=== PATIENT | female | born 1995 | race Caucasian/White ===

== ENCOUNTER 2019-08-04 01:54 | Emergency (ER) | payer BC, MEDICAID ==
[~2019-08-04] VITALS: Ht 160 cm; Wt 61.2 kg
[~2019-08-04 01:54] MED LIST: CEFU250T11 PO; CEPH500C PO; ONDA-42 SL; PHEN100T17 PO; SULF-222 PO
--- NOTE | 2019-08-04 03:04 | ED Cough/URI ---
General Chief Complaint: Fever-Adult/Adol Stated Complaint: FEVER, BODY PAIN Nursing Triage Note: SORETHROAT, FEVER AND BODY ACHES X2 DAYS, LAST TYLENOL AT 1600 LAST IBU AT 1200 Sepsis Screen: No Definite Risk Source: patient Exam Limitations: no limitations History of Present Illness Date Seen by Provider: Aug 04, 2019 Time Seen by Provider: 02:45 Initial Comments The patient presents ER by private conveyance with chief complaint of body aches chills fever for the past 3 days. She's been using Tylenol ibuprofen. She has a sore throat. Occasional cough is nonproductive. No shortness of breath or wheezing. No significant medical history. No rash. Allergies and Home Medications Allergies Coded Allergies: No Known Drug Allergies (Verified Allergy, Unknown, 10/08/08) Home Medications Cephalexin Monohydrate 500 Mg Capsule, 1 EACH PO TID Prescribed by: CHRISTINA PERDOMO on 01/28/15 1813 Ondansetron Hcl 4 Mg Tab, 4 MG SL Q4H PRN for NAUSEA/VOMITING FOR NAUSEA AND VOMITING Prescribed by: CHRISTINA PERDOMO on 01/28/15 1804 Phenazopyridine Hcl 100 Mg Tablet, 100 EACH PO TID PRN, (Reported) Trimethoprim/Sulfamethoxazole 1 Ea Tablet, 1 TAB PO BID, (Reported) Patient Home Medication List Home Medication List Reviewed: Yes Review of Systems Review of Systems Constitutional: chills, fever, malaise EENTM: see HPI; No ear discharge, No hearing loss, No ear pain Respiratory: see HPI, cough; No phlegm, No short of breath Cardiovascular: No chest pain, No edema Gastrointestinal: No abdominal pain, No constipation, No diarrhea, No nausea Past Qszqerj-Tlkvyk-Qpswdu Hx Patient Social History Alcohol Use: Denies Use Recreational Drug Use: No Smoking Status: Never a Smoker Recent Foreign Travel: No Contact w/Someone Who Travel: No Recent Infectious Disease Expo: No Recent Hopitalizations: No Physical Abuse: No Sexual Abuse: No Mistreated: No Fear: No Immunizations Up To Date Tetanus Booster (TDap): Less than 5yrs PED Vaccines UTD: Yes Date of Influenza Vaccine: Jul 14, 2019 Seasonal Allergies Seasonal Allergies: No Past Medical History Surgeries: Yes (ORTHO TO LEFT HAND X 7) Orthopedic Respiratory: No Cardiac: No Neurological: No Reproductive Disorders: No Sexually Transmitted Disease: No Genitourinary: No Gastrointestinal: No Musculoskeletal: Yes (LEFT THUMB AND TIPS OF FINGER AMPUTATIONS) Endocrine: No HEENT: No Cancer: No Psychosocial: No Integumentary: No Blood Disorders: No Physical Exam Vital Signs - First Documented 08/04/19 02:10 Temp 37.9 Pulse 121 Resp 18 B/P (MAP) 135/98 (110) Pulse Ox 98 Capillary Refill : Less Than 3 Seconds Height: 5'3" Weight: 120lbs. oz. 54.735979wt; 23.00 BMI Method: General Appearance: WD/WN, no apparent distress Eyes: Bilateral Eye Normal Inspection, Bilateral Eye PERRL, Bilateral Eye EOMI HEENT: PERRL/EOMI, TMs normal, pharyngeal erythema; No tonsillar exudate Neck: full range of motion, lymphadenopathy (R), lymphadenopathy (L) (tender, shoddy, bilateral, anterior cervical lymphadenopathy) Respiratory: lungs clear, normal breath sounds, no respiratory distress, no accessory muscle use Progress/Results/Core Measures Suspected Sepsis Recent Fever Within 48 Hours: Yes Infection Criteria Present: None New/Unexplained Altered Menta: No Sepsis Screen: No Definite Risk SIRS Temperature: Pulse: 121 Respiratory Rate: 18 Blood Pressure 135 /98 Mean: 110 Results/Orders Lab Results Laboratory Tests Test 08/04/19 02:20 Range/Units Group A Streptococcus Screen NEGATIVE NEGATIVE Micro Results Microbiology 08/04/19 Influenza Types A,B Antigen (SHMUEL) - Final, Complete My Orders Orders - AHSAN HARLEY Influenza A And B Antigens (08/04/19 02:23) Rapid Strep A Screen (08/04/19 02:23) Vital Signs/I&O 08/04/19 02:10 Temp 37.9 Pulse 121 Resp 18 B/P (MAP) 135/98 (110) Pulse Ox 98 Capillary Refill : Less Than 3 Seconds Blood Pressure Mean: 110 POS Progress Note : Time: 03:01 Progress Note URI with negative rapid strep and influenza. Conservative counseling given. Toradol for her fever and body aches. Departure Impression Primary Impression: Upper respiratory infection Qualified Codes: J06.9 - Acute upper respiratory infection, unspecified Disposition: 01 HOME, SELF-CARE Condition: Stable Departure-Patient Inst. Decision time for Depature: 03:02 Referrals: TITO CORREA MD (PCP/Family) Primary Care Physician Patient Instructions: Cough, Runny Nose, and the Common Cold (DC) Add. Discharge Instructions: Drink plenty of fluids use humidifiers and vapor rubs and xdmy-vjk-yysufaf cough and cold remedies as necessary for symptom management. Chlorpheniramine 4 mg every 4 hours can be helpful for nasal congestion. Salt water gargles, hot tea with honey or lemon can be helpful for sore throat. If the strep culture comes back positive then we will call you and send out a prescription as appropriate. Tylenol 1000 mg every 8 hours as needed for pain, body aches or fever. Ibuprofen 800 mg every 8 hours as needed for pain, body aches or fever. Alternatively you can use naproxen/Aleve one to 2 capsules twice a day. All discharge instructions reviewed with patient and/or family. Voiced understanding. AHSAN HARLEY Aug 04, 2019 03:04 POS
[2019-08-04 03:12] VITALS: BP 135/98
[2019-08-04] MEDS ORDERED: KETOROLAC 60 MG/2 ML VIAL IM ONE (03:15)
== END 2019-08-04 03:15 | disposition home or self-care (01) ==
LOC: EDUNIT# 01:54 → ER 01:57
DX: J06.9 Acute upper respiratory infection, unspecified (principal); Z89.012 Acquired absence of left thumb; Z89.022 Acquired absence of left finger(s)
CPT/HCPCS: 87430; 87804; 96372

== ENCOUNTER 2020-02-23 22:03 | Emergency (ER) | payer MEDICAID ==
[~2020-02-23] VITALS: Ht 160 cm; Wt 62.5 kg
[2020-02-23 22:08] VITALS: BP 120/80
[2020-02-23] MEDS ORDERED: CLIN300C11 PO (22:21)
--- NOTE | 2020-02-23 22:22 | ED EENT ---
History of Present Illness General Chief Complaint: Dental Problems/Pain Stated Complaint: TOOTH PAIN History of Present Illness Date Seen by Provider: Feb 23, 2020 Time Seen by Provider: 22:10 Initial Comments 24-year-old female who presents have 14 weeks gestation reports dental pain on the right lower molar. It has been present since last night. She has been taking Tylenol with no resolution in her symptoms. She does not have a local dentist. Timing/Duration: abrupt Location: dental Prearrival Treatment: over the counter meds Associated Symptoms: denies symptoms Allergies and Home Medications Allergies Coded Allergies: No Known Drug Allergies (Verified Allergy, Unknown, 10/08/08) Home Medications Clindamycin HCl 300 Mg Capsule, 300 MG PO Q8H Prescribed by: XOCHILT ORANTES on 02/23/202220 Patient Home Medication List Home Medication List Reviewed: Yes Review of Systems Review of Systems Constitutional: no symptoms reported, see HPI Mouth: see HPI, pain (right dental) : Yes All Other Systems Reviewed Negative Unless Noted: Yes Past Emcbomv-Iibshf-Uwurhv Hx Past Med/Social Hx: Reviewed Nursing Past Med/Soc Hx Patient Social History Alcohol Use: Denies Use Recreational Drug Use: No Smoking Status: Never a Smoker 2nd Hand Smoke Exposure: No Recent Foreign Travel: No Contact w/Someone Who Travel: No Recent Hopitalizations: No Physical Abuse: No Sexual Abuse: No Mistreated: No Fear: No Immunizations Up To Date Tetanus Booster (TDap): Less than 5yrs PED Vaccines UTD: Yes Date of Influenza Vaccine: Jul 14, 2019 Seasonal Allergies Seasonal Allergies: No Past Medical History Surgeries: Yes (ORTHO TO LEFT HAND X 7, right thumb) Orthopedic Respiratory: No Cardiac: No Neurological: No Reproductive Disorders: No Sexually Transmitted Disease: No Genitourinary: No Gastrointestinal: No Musculoskeletal: Yes (LEFT THUMB AND TIPS OF FINGER AMPUTATIONS) Endocrine: No HEENT: No Cancer: No Psychosocial: No Integumentary: No Blood Disorders: No Physical Exam Vital Signs Vital Signs - First Documented 02/23/20 22:08 Temp 36.8 Pulse 76 Resp 16 B/P (MAP) 120/80 (93) Pulse Ox 100 O2 Delivery Room Air Height, Weight, BMI Height: 5'3" Weight: 120lbs. oz. [id number]; 23.00 BMI Method: General Appearance: WD/WN, no apparent distress Ears: bilateral ear auricle normal, bilateral ear canal normal, bilateral ear TM normal Nose: normal inspection; No active bleeding, No discharge Mouth/Throat: pharynx normal, dental tenderness (tooth 32); No mandibular swelling, No maxillary swelling Neck: full range of motion, supple, normal inspection, lymphadenopathy (R) Cardiovascular: normal peripheral pulses, regular rate, rhythm Respiratory: chest non-tender, lungs clear, normal breath sounds Gastrointestinal: normal bowel sounds, non tender, soft Neurologic/Psychiatric: no motor/sensory deficits, alert, normal mood/affect, oriented x 3 Skin: normal color, warm/dry Progress/Results/Core Measures Results/Orders My Orders Orders - XOCHILT ORANTES Clindamycin Capsule (Cleocin Capsule) (02/23/20 22:30) Medications Given in ED Current Medications Medications Dose Ordered Sig/Ryan Route Start Time Stop Time Status Last Admin Dose Admin Clindamycin HCl 300 mg ONCE ONCE PO 02/23/20 22:30 02/23/20 22:31 DC 02/23/20 22:31 300 MG Vital Signs/I&O 02/23/20 22:08 Temp 36.8 Pulse 76 Resp 16 B/P (MAP) 120/80 (93) Pulse Ox 100 O2 Delivery Room Air Departure Impression Primary Impression: Mouth pain Additional Impression: Impacted tooth Disposition: HOME, SELF-CARE Condition: Improved Departure-Patient Inst. Decision time for Depature: 22:20 Referrals: EMILY TRAORE MD ,LOCAL PHYSICIAN (PCP) Primary Care Physician Patient Instructions: Impacted Tooth (DC), Dental Pain (DC) Add. Discharge Instructions: Warm moist compressions to right cheek. Continue taking Tylenol 650 mg every 8 hours for pain. Take antibiotics as prescribed. Use lrue-yvt-[id number] dental pain ointment such as Ambesol. Rinse her mouth with Listerine or peroxide every 4 hours. Follow-up with [facility] or your DRAFTING ENGINEER for referral to a dentist. Return to the emergency department for new, urgent health care needs. All discharge instructions reviewed with patient and/or family. Voiced understanding. Scripts Clindamycin HCl (Clindamycin HCl) 300 Mg Capsule 300 MG PO Q8H, #21 CAP 0 Refills Prov: XOCHILT ORANTES 02/23/20 Copy Copies To 1: EMILY TRAORE MD, AMY ARNP Feb 23, 2020:22
[2020-02-23] MEDS ORDERED: CLINDAMYCIN 150 MG (CLEOCIN) CAP PO ONE (22:30)
== END 2020-02-23 22:32 | disposition home or self-care (01) ==
LOC: EDUNIT# 22:03 → ER 22:05
DX: K01.1 Impacted teeth (principal)
CPT/HCPCS: 99283

== ENCOUNTER 2020-04-29 18:39 | Outpatient (CLI) | payer MEDICAID ==
[~2020-04-29] VITALS: Ht 160 cm; Wt 68.0 kg
[~2020-04-29 18:39] MED LIST changes: +CLIN300C11 PO
--- NOTE | 2020-04-29 18:45 | NUR ---
CURT CARTER presented to unit via w/c from ED, accompanied by family, with c/o SIDE PAIN. CURT CARTER weighed, gowned, voided, and to bed. EFHM and TOCO applied, VS taken. CURT CARTER oriented to bed controls, call light, TV, heat, and A/C controls.
[2020-04-29 19:00] VITALS: BP 107/71
[2020-04-29 19:49] VITALS: BP 110/74
--- NOTE | 2020-04-29 19:49 | NUR ---
dr. 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 pt denies any abdominal trauma, or falls, denies burning or pain with urination. VSS, no ctx's noted. Pt states having anterior placenta, FHT audible when pt is tilted to right side with EFM on right side of abdomen. Abdomen not tender to touch. Pt did states she was lifting more than 50lbs at work prior to having the sharp pain. Orders received from dr. mena.
[2020-04-29 20:33] LABS: BASOPHILS % (AUTO) 0 % (0-10); EOSINOPHILS # (AUTO) 0.1 10^3/uL (0.0-0.3); EOSINOPHILS % (AUTO) 1 % (0-10); HEMATOCRIT 37 % (35-52); HEMOGLOBIN 12.6 G/DL (11.5-16.0); LYMPHOCYTES # (AUTO) 1.9 X 10^3 (1.0-4.0); LYMPHOCYTES % (AUTO) 18 % (12-44); MEAN CORPUSCULAR HEMOGLOBIN 35 PG (25-34); MEAN CORPUSCULAR HGB CONC 34 G/DL (32-36); MEAN CORPUSCULAR VOLUME 102 FL (80-99); MEAN PLATELET VOLUME 9.4 FL (7.4-10.4); MONOCYTES # (AUTO) 0.8 X 10^3 (0.0-1.0); MONOCYTES % (AUTO) 8 % (0-12); NEUTROPHILS # (AUTO) 7.5 X 10^3 (1.8-7.8); NEUTROPHILS % (AUTO) 73 % (42-75); PLATELET COUNT 247 10^3/uL (130-400); RED CELL DISTRIBUTION WIDTH 12.2 % (10.0-14.5); WHITE BLOOD COUNT 10.3 10^3/uL (4.3-11.0)
[2020-04-29 20:36] LABS: BILIRUBIN,URINE NEGATIVE (NEGATIVE); COLOR,URINE YELLOW; GLUCOSE, URINE (UA) NEGATIVE (NEGATIVE); KETONES,URINE NEGATIVE (NEGATIVE); LEUKOCYTE ESTERASE ,URINE 2+ (NEGATIVE); NITRITE,URINE POSITIVE (NEGATIVE); PROTEIN,URINE NEGATIVE (NEGATIVE)
[2020-04-29 20:42] LABS: ALANINE AMINOTRANSFERASE 14 U/L (0-55); ALBUMIN 3.6 GM/DL (3.2-4.5); ALKALINE PHOSPHATASE 82 U/L (40-136); BILIRUBIN,TOTAL 0.3 MG/DL (0.1-1.0); BUN/CREATININE RATIO 13; CARBON DIOXIDE 23 MMOL/L (21-32); CHLORIDE 106 MMOL/L (98-107); GFR ESTIMATED > 60; GLUCOSE 88 MG/DL (70-105); SODIUM 136 MMOL/L (135-145); TOTAL PROTEIN 6.6 GM/DL (6.4-8.2)
[2020-04-29 20:45] LABS: BACTERIA,URINE MODERATE /HPF; CLARITY,URINE SL CLOUDY
--- NOTE | 2020-04-29 20:57 | NUR ---
Lab results reviewed with dr. Montiel orders received. pt's pain decreased and feeling better.
[2020-04-29] MEDS ORDERED: AMOX500T2 PO (21:07)
[2020-04-29] MEDS ORDERED: AMOXICILLIN 250 MG (POLYMOX) CAP PO ONE (21:11)
[2020-04-29 21:31] VITALS: BP 110/74
--- NOTE | 2020-04-29 21:31 | NUR ---
Discharge instructions reviewed with pt, rx called into pharmacy and enc to berry picker machine operator tomorrow, pt to f/u with clinic on saturday. Dr. maya note given for pt to be off work saturday-saturday per dr. mena request. pt verbalized understanding and ambulated off unit with self. no s/s of distress noted.
[2020-04-30] MEDS ORDERED: AMOXICILLIN 500 MG (POLYMOX) CAP PO ONE (08:00)
--- NOTE | 2020-05-02 08:15 | Physician Query-Final Dx ---
Clinic Account Progress/Dx Physician Query: Please give diagnosis Please include # weeks gestation Date of Service Apr 29, 2020 at 18:39 ELI VICENTE May 02, 2020 08:15
== END 2020-04-29 21:31 | disposition home or self-care (01) ==
LOC: WSo 18:39 → LDRP 18:40 → WSo 21:31
PROVIDERS: ATTEND Family Medicine
DX: O26.899 Other specified pregnancy related conditions, unspecified trimester (principal); R10.9 Unspecified abdominal pain; Z3A.00 Weeks of gestation of pregnancy not specified
CPT/HCPCS: 36415; 80053; 81000; 85025; 87077; 87088; 87186; 99213

== ENCOUNTER 2020-07-19 14:45 | Outpatient (CLI) | payer MEDICAID ==
[~2020-07-19] VITALS: Ht 160 cm; Wt 73.8 kg
[~2020-07-19 14:45] MED LIST changes: +AMOX500T2 PO
--- NOTE | 2020-07-19 14:50 | NUR ---
CURT CARTER presented to unit from ED, accompanied by Staff , with c/o CONTRACTIONS. CURT CARTER weighed, gowned, voided, and to bed. EFHM and TOCO applied, VS taken. CURT CARTER oriented to bed controls, call light, TV, heat, and A/C controls.
[2020-07-19 15:00] VITALS: BP 123/78
[2020-07-19 15:10] VITALS: BP 123/78
[2020-07-19 15:29] LABS: BILIRUBIN,URINE NEGATIVE (NEGATIVE); CLARITY,URINE CLEAR; COLOR,URINE DARK YELLOW; GLUCOSE, URINE (UA) NEGATIVE (NEGATIVE); KETONES,URINE NEGATIVE (NEGATIVE); LEUKOCYTE ESTERASE ,URINE 3+ (NEGATIVE); NITRITE,URINE POSITIVE (NEGATIVE); PROTEIN,URINE NEGATIVE (NEGATIVE)
[2020-07-19] MEDS ORDERED: PNV11TAB5 PO (15:30)
[2020-07-19 15:59] LABS: AMORPHOUS SEDIMENT,UR FEW AMOR URATES /LPF; BACTERIA,URINE LARGE /HPF; RBC,URINE 0-2 /HPF; WBC,URINE 25-50 /HPF
--- NOTE | 2020-07-19 16:00 | NUR ---
Care of patient transferred to Chetan Tracy RN.
--- NOTE | 2020-07-19 16:49 | NUR ---
Dr. Gore updated on patient's status and UA results. New orders received.
[2020-07-19] MEDS ORDERED: cefTRIAXone 1,000 MG/2.86 ml vial (IM ONLY) ONE (16:58)
[2020-07-19] MEDS ORDERED: LIDOCAINE 1% INJ 20 ML 20 ML VIAL ONE (16:58)
[2020-07-19] MEDS ORDERED: LIDOCAINE 1% INJ 20 ML 20 ML VIAL INJ ONE (17:00)
[2020-07-19] MEDS ORDERED: cefTRIAXone 1,000 MG/2.86 ml vial (IM ONLY) IM SCH (17:00)
[2020-07-19 17:20] VITALS: BP 119/78
[2020-07-19] MEDS ORDERED: LACTATED RINGERS 1,000 ML IV SCH (17:45)
[2020-07-19] MEDS ORDERED: ACETAMINOPHEN 500 MG TAB (TYLENOL) PO ONE (17:45)
[2020-07-19] MEDS ORDERED: hydrOXYzine (VISTARIL/ATARAX) 25 MG capsule/tablet ONE (17:48)
[2020-07-19] MEDS ORDERED: ACETAMINOPHEN 500 MG TAB (TYLENOL) ONE (17:49)
[2020-07-19] MEDS ORDERED: hydrOXYzine (VISTARIL/ATARAX) 25 MG capsule/tablet PO ONE (18:00)
[2020-07-19] MEDS ORDERED: ZOLPIDEM 5 MG (AMBIEN) TAB PO PRN (20:00)
[2020-07-19] MEDS ORDERED: ACETAMINOPHEN 500 MG TAB (TYLENOL) PO PRN (20:00)
--- NOTE | 2020-07-19 20:00 | NUR ---
Dr Gore updated with pt status. New orders received.
[2020-07-19] MEDS: LACTATED RINGERS 1,000 ML IV SCH (20:08)
--- NOTE | 2020-07-19 20:55 | NUR ---
pt up to bathroom. noticed small amount of bloody show on bed pad. No leaking fluid.
[2020-07-19 21:45] VITALS: BP 117/73
--- NOTE | 2020-07-19 21:45 | NUR ---
Dr Gore updated with pt status and ve.
--- NOTE | 2020-07-19 22:30 | NUR ---
baby very active. difficult to trace FHT's.
[2020-07-20] VITALS: BP 112/62
[2020-07-20 03:00] VITALS: BP 102/53
[2020-07-20] MEDS: LACTATED RINGERS 1,000 ML IV SCH (04:03)
[2020-07-20 05:15] VITALS: BP 116/70
--- NOTE | 2020-07-20 06:38 | NUR ---
Dr. Gore called for report on pt. ordered pt to be rechecked. If pt has not made cervical change, pt is to receive 1gm Rocephin IV and be discharged. At discharge ordered Omnicef 300mg BID for 3 days to be called into pharmacy.
[2020-07-20] MEDS ORDERED: cefTRIAXone FOR IV USE 1,000 MG in WATER (STERILE) FOR INJECTION 10 ML IV ONE (06:45)
--- NOTE | 2020-07-20 06:50 | NUR ---
SVE 3.5cm
[2020-07-20 07:06] VITALS: BP 95/58
--- NOTE | 2020-07-20 07:31 | NUR ---
Discharge instructions explained, signed and copy to patient per Bonnie Rodriguez RN. pt ambulates off unit discharged to home with belongings in hand.
--- NOTE | 2020-07-20 08:51 | Physician Query-Final Dx ---
Clinic Account Progress/Dx Physician Query: Please give diagnosis Please include # weeks gestation Date of Service Jul 19, 2020 at 14:45 ELI VICENTE Jul 20, 2020 08:51
== END 2020-07-20 07:31 | disposition home or self-care (01) ==
LOC: WSo 14:45 → LDRP 14:46 → WSo 07-20 07:31
PROVIDERS: ATTEND Family Medicine
DX: Z34.90 Encounter for supervision of normal pregnancy, unspecified, unspecified trimester (principal); Z3A.00 Weeks of gestation of pregnancy not specified
CPT/HCPCS: 81000; 87077; 87088; 87186; 96361; 96372; 96374

== ENCOUNTER → 2020-08-01 | Outpatient (CLI) | payer MEDICAID ==
[~2020-08-01] MED LIST changes: +DCS100C PO; +IBUP-1780 PO; +OXYC1TAB12 PO; +PNV11TAB5 PO
== END ==
LOC: LABNPT 07-29 05:55
PROVIDERS: ATTEND Family Medicine
DX: Z34.93 Encounter for supervision of normal pregnancy, unspecified, third trimester (principal); Z3A.39 39 weeks gestation of pregnancy; Z20.828 Contact with and (suspected) exposure to other viral communicable diseases
CPT/HCPCS: 87635

== ENCOUNTER 2020-08-02 18:29 | Inpatient (IN) | payer MEDICAID ==
[~2020-08-02] VITALS: Ht 160 cm; Wt 76.3 kg
[~2020-08-02 18:29] MED LIST changes: -DCS100C PO; -IBUP-1780 PO; -OXYC1TAB12 PO
--- NOTE | 2020-08-02 18:40 | NUR ---
CURT CARTER admitted to room 3319-1, with an admitting diagnosis of induction of labor, on 08/02/20 from home via private car to registration in ER, accompanied by s/o.CURT CARTER introduced to surroundings, call light, bed controls, phone, TV, temperature control, lights, meal times, smoking policy, visitor policy, side rail policy, bathrooms and showers. Patient Rights given to patient in the handbook. CURT CARTER verbalizes understanding that [facility] is not responsible for the loss or damage to any personal effects or valuables that are kept in the patients posession during their hospitalization. The following Patient Care Plans were discussed with the patient: Discharge Planning, pain management, and labor care plan. CURT CARTER verbalizes understanding of Interdisciplinary Patient Education. Patient and/or family were informed about the Rapid Response Team and its purpose.
[2020-08-02] MEDS ORDERED: WATER (STERILE) FOR INJECTION 20 ML ONE (19:06)
[2020-08-02] MEDS ORDERED: D5 LR IV SOLUTION 1,000 ML IV ONE (19:06)
[2020-08-02] MEDS ORDERED: AMPICILLIN 2,000 MG/14.8 ML (IV USE) ONE (19:06)
[2020-08-02 19:15] VITALS: BP 122/78
[2020-08-02] MEDS ORDERED: MINERAL OIL CONCENTRATE 99.9% 15 ML UDC TOP PRN (19:30)
[2020-08-02] MEDS: D5 LR IV SOLUTION 1,000 ML IV SCH (19:33)
[2020-08-02 19:45] LABS: BASOPHILS % (AUTO) 0 % (0-10); EOSINOPHILS # (AUTO) 0.1 10^3/uL (0.0-0.3); EOSINOPHILS % (AUTO) 1 % (0-10); HEMATOCRIT 39 % (35-52); HEMOGLOBIN 13.4 g/dL (11.5-16.0); LYMPHOCYTES # (AUTO) 2.3 10^3/uL (1.0-4.0); LYMPHOCYTES % (AUTO) 20 % (12-44); MEAN CORPUSCULAR HEMOGLOBIN 34 pg (25-34); MEAN CORPUSCULAR HGB CONC 34 g/dL (32-36); MEAN CORPUSCULAR VOLUME 100 fL (80-99); MEAN PLATELET VOLUME 10.5 fL (9.0-12.2); MONOCYTES # (AUTO) 0.8 10^3/uL (0.0-1.0); MONOCYTES % (AUTO) 7 % (0-12); NEUTROPHILS # (AUTO) 8.4 10^3/uL (1.8-7.8); NEUTROPHILS % (AUTO) 71 % (42-75); PLATELET COUNT 270 10^3/uL (130-400); WHITE BLOOD COUNT 11.7 10^3/uL (4.3-11.0)
[2020-08-02] MEDS ORDERED: AMPICILLIN FOR IV USE 2,000 MG in WATER (STERILE) FOR INJECTION 14.8 ML IV SCH (19:58)
[2020-08-02 22:00] VITALS: BP 120/81
--- NOTE | 2020-08-02 22:08 | NUR ---
Dr. alejandre called and updated on pt's sve, and ctx pattern, will hold off on starting cytotec protocol due to ctx's and sve. Cont to monitor through night.
[2020-08-02] MEDS: CATHETER FLUSH 10 ML SYR IV SCH (22:51)
[2020-08-02] MEDS: AMPICILLIN FOR IV USE 1,000 MG in WATER (STERILE) FOR INJECTION 7.4 ML IV SCH (23:50)
[2020-08-03] VITALS (32 sets, daily range): BP systolic 92–151; BP diastolic 43–100
[2020-08-03] MEDS: D5 LR IV SOLUTION 1,000 ML IV SCH ×2 (01:43→10:18)
[2020-08-03] MEDS: AMPICILLIN FOR IV USE 1,000 MG in WATER (STERILE) FOR INJECTION 7.4 ML IV SCH ×3 (03:47→12:12)
[2020-08-03] MEDS: CATHETER FLUSH 10 ML SYR IV SCH ×2 (05:38→22:40)
[2020-08-03] MEDS ORDERED: OXYTOCIN PRE-MIX DRIP 500 ML IV SCH ×2 (08:50→15:15)
[2020-08-03] MEDS ORDERED: OXYTOCIN PRE-MIX DRIP 500 ML IV ONE (08:51)
--- NOTE | 2020-08-03 11:06 | History & Physical-OB ---
OB - Chief Complaint & HPI Date/Time Date of Admission: Date of Admission: Aug 02, 2020 at 18:29 Date seen by a Provider: Aug 03, 2020 Time Seen by a Provider: 09:40 Chief Complaint/History OB-Reason for Admission/Chief: Induction of Labor Hx : 1 Hx Para: 0 Expected Date of Delivery: Aug 01, 2020 Gestational Age in Weeks: 40 Gestational Age in Days: 1 Indication for induction: post dates History of Labs O+, Ab Neg Rub Imm HIV/HepB/RPR NR Chyl + Abnormal 1 hr GTT, borderline 3 hr GTT GBS Pos Allergies and Home Medications Allergies Coded Allergies: No Known Drug Allergies (Verified , 08/02/20) Home Medications [id number]/FA/Omega3/Dha/Fish Oil 1 Each Tab.chew, 1 EACH PO DAILY, (Reported) Patient Home Medication List Home Medication List Reviewed: Yes OB - History Hx of Present Care: Yes Ultrasounds: No ultrasounds Obstetrical Complications: None Medical Complications: None Information Induced Hypertension: No Maternal Gestational Diabetes: No Hemorrhage: No Obstetrical History Hx : 1 Hx Para: 0 Number of Living Children: 0 Delivery History Hx Blood Disorders: No Patient Past Medical History UTI in Social History/Family History HIV/AIDS: No Recent Infectious Disease Expo: No Sexually Transmitted Disease: No Alcohol Use: Denies Use Recreational Drug Use: No 2nd Hand Smoke Exposure: No Immunizations Hepatitis A: Yes Hepatitis B: Yes Tetanus Booster (TDap): Less than 5yrs Date of Influenza Vaccine: Jun 02, 2020 Rubella: immune RPR/VDRL: Negative GBS Status: Positive HBsAG: Negative OB - Admission Exam Physical Exam Vitals: Vital Signs 08/03/20 08/03/20 09:40 10:10 Temp 36.6 Pulse 81 Resp 18 B/P (MAP) 135/91 (106) O2 Delivery Room Air HEENT: PERRLA Heart: Rhythm Normal Lungs: Clear Abdomen: Gravid Cervical Dilatation: 5cm Effacement: 75% Station: -1 Membranes: Intact Accelerations: Accelerations Present Decelerations: Variable Decelerations Contractions on Admission: < 5 Minutes Apart Intensity: Moderate Ortega Scoring Tool (Modified) Dilation (cm): 3-4cm (2) Effacement (%): 51-79% (2) Descent/Station: -2 (1) Cervix Consistency: Medium(1) Cervix Position: Middle/Mid-Position (1) Ortega Score: 8 Labs Laboratory Tests Test 08/02/20 19:30 Range/Units White Blood Count 11.7 H 4.3-11.0 10^3/uL Red Blood Count 3.90 3.80-5.11 10^6/uL Hemoglobin 13.4 11.5-16.0 g/dL Hematocrit 39 35-52 % Mean Corpuscular Volume 100 H 80-99 fL Mean Corpuscular Hemoglobin 34 25-34 pg Mean Corpuscular Hemoglobin Concent 34 32-36 g/dL Red Cell Distribution Width 11.8 10.0-14.5 % Platelet Count 270 130-400 10^3/uL Mean Platelet Volume 10.5 9.0-12.2 fL Immature Granulocyte % (Auto) 1 % Neutrophils (%) (Auto) 71 42-75 % Lymphocytes (%) (Auto) 20 12-44 % Monocytes (%) (Auto) 7 0-12 % Eosinophils (%) (Auto) 1 0-10 % Basophils (%) (Auto) 0 0-10 % Neutrophils # (Auto) 8.4 H 1.8-7.8 10^3/uL Lymphocytes # (Auto) 2.3 1.0-4.0 10^3/uL Monocytes # (Auto) 0.8 0.0-1.0 10^3/uL Eosinophils # (Auto) 0.1 0.0-0.3 10^3/uL Basophils # (Auto) 0.0 0.0-0.1 10^3/uL Immature Granulocyte # (Auto) 0.1 0.0-0.1 10^3/uL OB - Assessment/Plan/Diagnosis Assessment Assessment: induction of labor Admission Dx Third Trimester 40 week gestation Admission Status: Inpatient Order (span 2 midnights) Reason for Inpatient Admission: Induction Plan Plan: Induction Other Plan 25 yo @ 40.3 wga here for elective IOL Plan - GBS +, ampicillin started last night - AROM 0940 clear - Start Pitocin protocol 1422: Began pushing with patient, patient had good effort and pushed for 45 mins. FHT began to have deep variable decelerations and taking longer to recover. Patient stated that she didn't think that she could push anymore and was not making any progression in station. Dr Talley was called for consult and agreed that patient was appropriate for for intolerance. Discussed plan of care with patient and she was in agreement with . Patient has been adequately treated for GBS. Ancef and Flagyl ordered for surgery. Ansthesia/OR crew called. EMILY TRAORE MD Aug 03, 2020 11:06
[2020-08-03] MEDS ORDERED: BUTORPHANOL INJ 2 MG/ML (STADOL) VIAL ONE (11:44)
[2020-08-03] MEDS ORDERED: BUTORPHANOL INJ 2 MG/ML (STADOL) VIAL IV ONE (11:45)
--- NOTE | 2020-08-03 12:55 | NUR ---
Report from Nick Conley RN. Introduced self to pt. Plan of care reviewed.
[2020-08-03] MEDS ORDERED: LIDOCAINE/EPI 2% 1:200,00 (XYLOCAINE) 10 ML VIAL ONE (13:22)
[2020-08-03] MEDS ORDERED: FAMOTIDINE 20MG/2ML IV (PEPCID) ONE (15:06)
[2020-08-03] MEDS ORDERED: CITRIC ACID/SOB CIT (BICITRA) 30 ML UDC ONE (15:06)
[2020-08-03] MEDS ORDERED: METOCLOPRAMIDE INJ 10 MG/2 ML (REGLAN) ONE (15:06)
[2020-08-03] MEDS ORDERED: TERBUTALINE INJ 1 MG/ML (BRETHINE) AMP ONE (15:07)
[2020-08-03] MEDS ORDERED: OXYTOCIN (PITOCIN) 10 UNIT/ML VIAL ONE (15:10)
[2020-08-03] MEDS ORDERED: fentaNYL INJECTION 100 MCG/2 ML AMP ONE (15:10)
[2020-08-03] MEDS ORDERED: ceFAZolin 2 GM IV Premixed 50 ML ONE (15:13)
[2020-08-03] MEDS ORDERED: metroNIDAZOLE 500MG/100ML IVPB 100 ML ONE (15:13)
[2020-08-03] MEDS ORDERED: TETANUS,DIPTH,PERTUSS P/F (BOOSTRIX) 0.5 ML VIAL IM ONE (15:15)
[2020-08-03] MEDS ORDERED: MEASLES,MUMPS,RUBELLA 1 EA INJ SC ONE (15:15)
[2020-08-03] MEDS ORDERED: ONDANSETRON 4 MG/2 ML (SDV) Z0FRAN IVP PRN (15:15)
[2020-08-03] MEDS ORDERED: D5 LR IV SOLUTION 1,000 ML IV SCH (15:15)
[2020-08-03] MEDS ORDERED: BUPIVACAINE 0.5% 30 ML (SENSORCAINE) VIAL ONE (16:19)
[2020-08-03] MEDS ORDERED: KETOROLAC 30 MG/ML VIAL ONE (16:22)
[2020-08-03] MEDS ORDERED: PHENYLEPHRINE 100 MCG/ML 10 ML (ANESTHESIA) SYR ONE (16:43)
[2020-08-03] MEDS ORDERED: METOCLOPRAMIDE INJ 10 MG/2 ML (REGLAN) IV PRN (16:45)
[2020-08-03] MEDS ORDERED: ONDANSETRON 4 MG/2 ML (SDV) Z0FRAN IV PRN (16:45)
[2020-08-03] MEDS ORDERED: NALOXONE 0.4 MG/ML 1 ML (NARCAN) VIAL IV PRN ×2 (16:45)
[2020-08-03] MEDS ORDERED: diphenhydrAMINE 50 MG/ML INJ (BENADRYL) IV PRN (16:45)
[2020-08-03] MEDS ORDERED: LACTATED RINGERS 1,000 ML IV PRN (18:09)
[2020-08-03] MEDS ORDERED: CITRIC ACID/SOB CIT (BICITRA) 30 ML UDC PO ONE (18:15)
[2020-08-03] MEDS ORDERED: FAMOTIDINE 20MG/2ML IV (PEPCID) IV ONE (18:15)
[2020-08-03] MEDS ORDERED: METOCLOPRAMIDE INJ 10 MG/2 ML (REGLAN) IV ONE (18:15)
[2020-08-03] MEDS: KETOROLAC 30 MG/ML VIAL IVP SCH ×2 (19:00→22:15)
[2020-08-03] MEDS ORDERED: TERBUTALINE INJ 1 MG/ML (BRETHINE) AMP SC ONE (19:15)
[2020-08-03] MEDS: DOCUSATE SODIUM 100 MG (COLACE) CAP PO SCH (19:46)
[2020-08-03] MEDS: oxyCODONE/APAP 10/325MG (PERCOCET 10) TABLET PO PRN ×2 (19:46→21:15)
--- NOTE | 2020-08-03 19:55 | NUR ---
Assisted pt with , infant skin to skin with mother and placed up to left breast, hand expressed colostrum rooting around and latch obtained. Discussed feeding times/duration with parents. Enc parents to keep feeding record up to date.
[2020-08-03] MEDS ORDERED: DOCUSATE SODIUM 100 MG (COLACE) CAP PO SCH (21:00)
--- NOTE | 2020-08-03 22:19 | OPERATIVE REPORT ---
DATE OF SERVICE: 08/02/2020 PREOPERATIVE DIAGNOSIS: Failure to progress in labor at 40+ weeks' gestation. POSTOPERATIVE DIAGNOSIS: Failure to progress in labor at 40+ weeks' gestation with persistent OP position. OPERATIVE PROCEDURE: Primary low transverse delivery of a viable male with Apgars of 7 and 9 at 1 and 5 minutes respectively, weight of 8 pounds. TELEPHONE MECHANIC FOR DELIVERY: Dr. Gore. OPERATIVE DESCRIPTION: With the patient in the supine position under satisfactory spinal analgesia, she was repositioned in dorsal lithotomy position and prepped and draped in the usual fashion for abdominal surgery. Nolan catheter was placed in the urinary bladder and left to dependent drainage. A Pfannenstiel incision was made through skin with scalpel, the patient's abdomen entered in the usual manner. Bladder retractor placed in position, clean scalpel used to make a 4 cm hysterotomy incision transversely across the lower uterine segment that was extended by blunt dissection as well. A small amount of clear fluid was released on hysterotomy. The hysterotomy incision was extended bluntly and then a vigorous viable male was delivered via the uterine incision in the usual manner. The infant was bulb suctioned on delivery of the head again on completion of delivery. A single nuchal cord was easily released. The was bulb suctioned after delivery while the umbilical cord was doubly clamped and the cord was cut and the passed to the pediatric nurse in attendance for the delivery. Cord bloods were obtained. Placenta delivered spontaneously Carter. It was normal with a 3-vessel cord. The uterus was exteriorized and interior wiped clean with a wet laparotomy sponge. Uterine incision was then closed with a running locked suture of 2-0 Vicryl. Hemostasis was satisfactory; however, the uterus was quite boggy and atonic. The patient had labored for apparently under Cytotec overnight and then on Pitocin all day long. Bleeding was not terribly excessive, but the uterus was quite boggy and atonic, so a modified B-Arreguin suture was placed using 2-0 chromic sutures in the usual modified manner. This compressed uterus nicely. The uterus was then returned to abdominal cavity. All blood clot and debris was removed from the abdominal cavity. Sponge and needle counts correct and hemostasis assured, the anterior parietal peritoneum was closed with running suture of 2-0 Vicryl. Rectus muscles were closed with that suture. Rectus fascia was closed with 2-0 Vicryl, subcutaneous tissue was closed with 2-0 Vicryl and the skin was stapled. Sponge and needle counts were correct on completion of the procedure. Estimated blood loss per anesthesia was around 200 mL. The patient tolerated the delivery well and was transferred to the recovery room in stable condition. The had remained in the bedside warmer under the care of Dr. Gore. Job ID: [id number] DocumentID: [id number] Dictated Date: 08/03/2020 16:20:18 Recenterer Date: 08/03/2020 22:19:26 Dictated By: TEX SIDDIQUI MD MTDD
--- NOTE | 2020-08-03 22:25 | NUR ---
Pt up to side of bed, ambulated to bathroom with standby assist. Positive void noted, pericare demonstrated, and discussed with pt. Clean vpad and panties in place, pt ambulated back to bed, calf scds in place lyle and on. Fresh ice given with diet coke. Infant in mother's arms to breastfeed.
--- NOTE | 2020-08-04 02:50 | NUR ---
Assisted pt with getting up to void, void noted, pericare given and assisted with. Ice pack to perineum for swelling. Pt denies needing pain medication. Pt back to bed with lyle calf scd's on. Fresh ice water given.
[2020-08-04] MEDS: KETOROLAC 30 MG/ML VIAL IVP SCH ×2 (04:18→10:42)
[2020-08-04 04:27] VITALS: BP 114/77
--- NOTE | 2020-08-04 08:00 | NUR ---
ATTEMPTING TO FEED . WILL RETURN WHEN PT FINISHED.
--- NOTE | 2020-08-04 08:04 | Anesthesia-Regional Post-Op ---
Regional Patient Condition Mental Status: Alert, Oriented x3 Circulation: Same as Pre-Op Headache: Absent Sensation: Full Recovery Motor Block: Absent Post Op Complications Complications None Follow Up Care/Instructions Patient Instructions None needed. Anesthesia/Patient Condition Patient is doing well, no complaints, stable vital signs, no apparent adverse anesthesia problems. No complications reported per nursing. UMM REYNOLDS CRNA Aug 04, 2020 08:03
[2020-08-04 09:00] VITALS: BP 124/85
--- NOTE | 2020-08-04 09:00 | NUR ---
A.M. ASSESSMENT COMPLETED. VSS. S.O. AT BEDSIDE.
--- NOTE | 2020-08-04 09:13 | Progress Note ---
Standard Progress Note Progress Notes/Assess & Plan Date Seen by a Provider: Aug 04, 2020 Time Seen by a Provider: 09:12 Progress/Assessment & Plan This patient is without complaint. She is ambulating, voiding, tolerating oral intake well and has good pain control. Vital Signs Date Time Temp Pulse Resp B/P (MAP) Pulse Ox O2 Delivery O2 Flow Rate FiO2 08/04/20 04:27 36.5 87 18 114/77 (89) Room Air 08/03/20 23:50 36.4 85 18 105/65 (78) 94 Room Air 08/03/20 19:50 36.6 97 18 115/76 (89) 98 Room Air 08/03/20 17:30 35.7 90 18 120/84 (96) 99 Room Air 08/03/20 17:15 Room Air 08/03/20 17:15 35.7 18 113/73 (86) 99 Room Air 08/03/20 17:00 Room Air 08/03/20 17:00 35.8 18 116/68 (84) 99 Room Air 08/03/20 16:45 Room Air 08/03/20 16:45 35.7 18 93/60 (71) 99 Room Air 08/03/20 16:27 Room Air 08/03/20 16:27 36.3 18 92/43 (59) 98 Room Air 08/03/20 15:13 101 18 121/65 (83) Non Rebreather 15.00 08/03/20 14:58 130 18 119/56 (77) Non Rebreather 15.00 08/03/20 14:46 Non Rebreather 15.00 08/03/20 14:42 114 18 112/70 (84) Room Air 08/03/20 14:26 75 18 136/88 (104) Room Air 08/03/20 14:11 81 18 133/85 (101) Room Air 08/03/20 13:57 105 18 138/95 (109) Room Air 08/03/20 13:42 95 18 132/87 (102) Room Air 08/03/20 12:55 90 18 142/94 (110) Room Air 08/03/20 12:40 73 18 124/85 (98) Room Air 08/03/20 12:25 71 18 118/81 (93) Room Air 08/03/20 12:10 71 18 113/75 (88) Room Air 08/03/20 11:55 72 18 114/73 (87) Room Air 08/03/20 11:25 93 18 129/100 (110) Room Air 08/03/20 11:10 82 18 135/87 (103) Room Air 08/03/20 10:55 36.7 74 18 137/83 (101) Room Air 08/03/20 10:40 86 18 151/91 (111) Room Air 08/03/20 10:25 73 18 130/81 (97) Room Air 08/03/20 10:10 81 18 135/91 (106) Room Air 08/03/20 09:55 78 18 126/84 (98) Room Air 08/03/20 09:40 36.6 77 18 129/89 (102) Room Air 08/03/20 09:15 79 18 120/78 (92) Room Air I & O 08/04/20 07:00 Intake Total 2750 ml Output Total 1315 ml Balance 1435 ml Vital signs are stable. Patient is afebrile. The abdomen is benign. The surgical incision is clean dry and intact. Extremities show no clubbing or cyanosis. There is no Homans' sign. Assessment and plan postoperative day #1 status post primary delivery doing well. Plan is for routine convalescent care TEX SIDDIQUI MD Aug 04, 2020 09:13
[2020-08-04] MEDS ORDERED: DCS100C PO (09:14)
[2020-08-04] MEDS ORDERED: OXYC1TAB12 PO ×2 (09:14→09:37)
[2020-08-04] MEDS ORDERED: IBUP-1780 PO (09:14)
--- NOTE | 2020-08-04 09:16 | Discharge Inst-Surgical ---
Discharge Inst-Surgical Depart Medication/Instructions New, Converted or Re-Newed RX: RX on Chart Consults/Follow Up Patient Instructions: As directed Orders & Referrals Follow Up Appt: RTC Next Wednesday August 12, 2020 at 9:30 AM for incision check. Call to make follow up appt. for patient With Dr. Gore in 6 weeks. Wound Care: Remove kylee, apply benzoin and steri strips. Activity Per routine post instructions. Please call in RX to patient pharmacy. Diet as tolerated Patient may shower or tub bathe as desired. Continue home meds Activity Activity as Tolerated: No Diet Discharge Diet: No Restrictions TEX SIDDIQUI MD Aug 04, 2020 09:16
[2020-08-04] MEDS: DOCUSATE SODIUM 100 MG (COLACE) CAP PO SCH ×2 (09:26→20:46)
[2020-08-04] MEDS: oxyCODONE/APAP 10/325MG (PERCOCET 10) TABLET PO PRN ×3 (09:28→23:38)
--- NOTE | 2020-08-04 09:28 | NUR ---
PERCOCET 10/325 1 PO FOR C/O ABDOMINAL PAIN.
--- NOTE | 2020-08-04 11:00 | NUR ---
STATES PAIN EASED BY PAIN MEDS.
[2020-08-04 13:00] VITALS: BP 105/65
--- NOTE | 2020-08-04 13:00 | NUR ---
EATING LUNCH. CONTINUES TO CARE FOR INFANT AND BREASTFEED. GOING BETTER.
--- NOTE | 2020-08-04 14:30 | NUR ---
AMBULATING IN THE [place] WITH S.O. PUSHING . MOVES WELL.
[2020-08-04 17:15] VITALS: BP 116/80
[2020-08-04] MEDS: IBUPROFEN 800 MG (MOTRIN) TAB PO SCH ×2 (17:20→23:38)
--- NOTE | 2020-08-04 17:21 | NUR ---
PERCOCET 10/325 2 PO FOR C/O ABD PAIN. ABDOMINAL BINDER PLACED.
[2020-08-04 23:38] VITALS: BP 117/80
[2020-08-05 05:48] VITALS: BP 127/85
[2020-08-05] MEDS: IBUPROFEN 800 MG (MOTRIN) TAB PO SCH ×2 (05:48→13:23)
[2020-08-05 09:00] VITALS: BP 138/78
--- NOTE | 2020-08-05 09:56 | Progress Note ---
Standard Progress Note Progress Notes/Assess & Plan Date Seen by a Provider: Aug 05, 2020 Time Seen by a Provider: 09:54 Progress/Assessment & Plan This patient is without complaint. She is ambulating, voiding, tolerating oral intake well and has good pain control. Vital Signs Date Time Temp Pulse Resp B/P (MAP) Pulse Ox O2 Delivery O2 Flow Rate FiO2 08/04/20 04:27 36.5 87 18 114/77 (89) Room Air 08/03/20 23:50 36.4 85 18 105/65 (78) 94 Room Air 08/03/20 19:50 36.6 97 18 115/76 (89) 98 Room Air 08/03/20 17:30 35.7 90 18 120/84 (96) 99 Room Air 08/03/20 17:15 Room Air 08/03/20 17:15 35.7 18 113/73 (86) 99 Room Air 08/03/20 17:00 Room Air 08/03/20 17:00 35.8 18 116/68 (84) 99 Room Air 08/03/20 16:45 Room Air 08/03/20 16:45 35.7 18 93/60 (71) 99 Room Air 08/03/20 16:27 Room Air 08/03/20 16:27 36.3 18 92/43 (59) 98 Room Air 08/03/20 15:13 101 18 121/65 (83) Non Rebreather 15.00 08/03/20 14:58 130 18 119/56 (77) Non Rebreather 15.00 08/03/20 14:46 Non Rebreather 15.00 08/03/20 14:42 114 18 112/70 (84) Room Air 08/03/20 14:26 75 18 136/88 (104) Room Air 08/03/20 14:11 81 18 133/85 (101) Room Air 08/03/20 13:57 105 18 138/95 (109) Room Air 08/03/20 13:42 95 18 132/87 (102) Room Air 08/03/20 12:55 90 18 142/94 (110) Room Air 08/03/20 12:40 73 18 124/85 (98) Room Air 08/03/20 12:25 71 18 118/81 (93) Room Air 08/03/20 12:10 71 18 113/75 (88) Room Air 08/03/20 11:55 72 18 114/73 (87) Room Air 08/03/20 11:25 93 18 129/100 (110) Room Air 08/03/20 11:10 82 18 135/87 (103) Room Air 08/03/20 10:55 36.7 74 18 137/83 (101) Room Air 08/03/20 10:40 86 18 151/91 (111) Room Air 08/03/20 10:25 73 18 130/81 (97) Room Air 08/03/20 10:10 81 18 135/91 (106) Room Air 08/03/20 09:55 78 18 126/84 (98) Room Air 08/03/20 09:40 36.6 77 18 129/89 (102) Room Air 08/03/20 09:15 79 18 120/78 (92) Room Air I & O 08/04/20 07:00 Intake Total 2750 ml Output Total 1315 ml Balance 1435 ml Vital signs are stable. Patient is afebrile. The abdomen is benign. The surgical incision is clean dry and intact. Extremities show no clubbing or cyanosis. There is no Homans' sign. Assessment and plan postoperative day #1 status post primary delivery doing well. Plan is for routine convalescent care August 05, 2020 This patient is without complaint. She is ambulating, voiding, tolerating oral intake well has good pain control. Patient is requesting discharge home. Vital Signs Date Time Temp Pulse Resp B/P (MAP) Pulse Ox O2 Delivery O2 Flow Rate FiO2 08/05/20 05:48 36.1 90 18 127/85 (99) 97 Room Air 08/04/20 23:38 36.6 82 18 117/80 (92) 96 Room Air 08/04/20 17:15 36.5 85 18 116/80 (92) 97 Room Air 08/04/20 16:22 Room Air 08/04/20 13:00 36.4 84 18 105/65 (78) 96 Room Air I & O 08/05/20 07:00 Intake Total 1940 ml Output Total 1150 ml Balance 790 ml Vital signs are stable. Patient is afebrile. Fundus is firm below the umbilicus and nontender. The surgical incision is clean dry and intact. Extremities show no clubbing or cyanosis. There is no Homans sign. Assessment and plan postoperative day number 2 status post primary delivery at 40 weeks gestation. Patient is doing well and will be discharged home with follow-up in clinic Final Diagnosis 40 week primary delivery TEX SIDDIQUI MD Aug 05, 2020 09:55
[2020-08-05] MEDS: DOCUSATE SODIUM 100 MG (COLACE) CAP PO SCH (13:23)
--- NOTE | 2020-08-05 13:45 | NUR ---
CURT CARTER demonstrates understanding of discharge instructions and accurately returns instructions upon questioning. Copy of Post-Discharge Instructions and Medication Discharge Instructions given to patient. CURT CARTER is able to manage continuing needs after discharge. Patients belongings returned to patient. Skin dry and intact; no breakdown noted. Patient discharged from [id number] on 08-05-20 at 1345. CURT CARTER left floor via ambulation, accompanied by staff and s/o.
== END 2020-08-05 13:45 | disposition home or self-care (01) | DRG 788 ==
LOC: LDRP 18:29 → WS 08-03 07:24 → LDRP 08-03 07:24
PROVIDERS: ADMIT Family Medicine; ATTEND Family Medicine
PROC: 10D00Z1 Extraction of Products of Conception, Low, Open Approach (ICD-10-PCS; principal; 2020-08-03 15:27)
DX: O48.0 Post-term pregnancy (principal); Z3A.40 40 weeks gestation of pregnancy; Z37.0 Single live birth; O62.0 Primary inadequate contractions
CPT/HCPCS: 36415; 85025; 86850; 86900; 86901; 94664